=== PATIENT | female | born 1940 | race Caucasian/White ===

== ENCOUNTER 2016-05-25 18:00 | Emergency (ER) | payer MEDICARE, BC ==
[~2016-05-25] VITALS: Ht 157.5 cm; Wt 66.0 kg
[~2016-05-25 18:00] MED LIST: ADVA115A INH; ASPI1TAB69 PO; BENZ100 PO; BYST10TA2 PO; CALC500T42 PO; CALCTAB23 PO; FISHCAP4 PO; FURO1TAB62 PO; GING500C PO; LISI2.5T3 PO; NITR0.4S SL; OMEP20TA PO; PLAV75TA29 PO; POTA10TA8 PO; PRED50 PO; ROSU5 PO; SPIRCAP INH; ZITHTAB PO
[2016-05-25 18:03] VITALS: BP 116/54; PULSE 99; RESP 20; TEMP 100.3; O2SAT 99
--- NOTE | 2016-05-25 21:02 | PD ---
HPI Chief Complaint: Cold / Flu Symptoms Time Seen by Provider: 20:43 Travel History International Travel<30 days: No Contact w/Intl Traveler<30days: No Traveled to known affect area: No History of Present Illness HPI 75yo F with PMH of lung CA s/p radiation on home O2 3L NC, CAD s/p cardiac stent presents to the ED with c/o fever, cough, nasal congestion and throat pain for 3 days. Denies any chest pain, sob, n/v, abdominal pain, focal weakness or numbness. Pt takes flonase and her left nostril feels more congested. Sister had a cold before her symptoms started. PFSH Past Medical History Hx Anticoagulant Therapy: Yes (ASA 81 MG, PLAVIX) Arthritis: Yes Asthma: Yes Blood Disorders: No Anxiety: Yes Depression: Yes Heart Rhythm Problems: No Cancer: Yes (LUNG CA) Cardiac Catheterization: Yes Cardiovascular Problems: Yes (STENTS X 7) High Cholesterol: Yes Chemotherapy: Yes (2001) Chest Pain: Yes Congestive Heart Failure: No COPD: Yes Cerebrovascular Accident: No Coronary Artery Disease: Yes Diabetes: No Diminished Hearing: No Endocrine: No Gastrointestinal Disorders: Yes (GERD ) GERD: Yes Genitourinary: Yes (SPASTIC BLADDER) Hypertension: Yes Immune Disorder: No Implanted Vascular Access Dvce: Yes Musculoskeletal: Yes (ARTHRITIS) Neurologic: No Psychiatric: No Reproductive: No Respiratory: Yes (COPD, LUNG CA) Radiation Therapy: Yes Shingles: Yes Sleep Apnea: No Menopausal: Yes : 2 Para: 2 Tubal Ligation: Yes Past Surgical History Cardiac Surgery: Yes (PERICARDIAL WINDOW 2002, STENTS X 6, CARDIAC CATHERIZATION) Coronary Stent: Yes (x 6) Hysterectomy: No Joint Replacement: Yes (RIGHT TOTAL KNEE REPLACEMENT) Neurologic Surgery: No Other Surgery: Yes (2002 STENT LAD & PDA) Social History Alcohol Use: No Tobacco Use: No (QUIT 1984) Substance Use: No Allergies-Medications (Allergen,Severity, Reaction): Coded Allergies: Codeine (Verified Allergy, Severe, 05/25/16) Heparin (Verified Adverse Reaction, Mild, Bleeding, 05/25/16) Integrilin (Verified Adverse Reaction, Mild, Bleeding, 05/25/16) PT STATES SHE JUST DOES NOT WANT IT Reported Meds & Prescriptions Reported Meds & Active Scripts Active Reported Nitrostat SL (Nitroglycerin) 0.4 Mg Subl 0.4 Mg SL DIRECTED PRN ONE TABLET UNDER THE TONGUE NEEDED FOR CHEST PAIN, MAY REPEAT EVERY FIVE MINUTES FOR A TOTAL OF 3 DOSES OR CALL 911 IF NO RELIEF Plavix (Clopidogrel Bisulfate) 75 Mg Tab 75 Mg PO DAILY Spiriva Handihaler (Tiotropium Inh) 18 Mcg Cap 18 Mcg INH DAILY 1 capsule = 18 mcg Potassium Chloride CR (Potassium Chloride) 10 Meq Tab 10 Meq PO DAILY Lisinopril 2.5 Mg Tab 2.5 Mg PO DAILY Lasix (Furosemide) 20 Mg Tab 20 Mg PO DAILY Omeprazole 20 Mg Tab 20 Mg PO DAILY Maria Dolores (Maria Dolores (Zingiber Officinalis)) 500 Mg Cap 1 Cap PO DAILY Fish Oil + D3 (Fish Oil-Cholecalciferol) 1,200-1,000 Mg-Unit Cap 1 Cap PO DAILY Crestor (Rosuvastatin Calcium) 5 Mg Tab 5 Mg PO DAILY Aspirin 81 Mg Tabdr 81 Mg PO DAILY Bystolic (Nebivolol) 10 Mg Tab 10 Mg PO DAILY Advair Hfa 12 GM Inh (Fluticasone-Salmeterol 12 GM Inh) 115-21 Mcg/Act Aer 2 Puff INH BID Review of Systems Except as stated in HPI: all other systems reviewed are Neg Physical Exam Narrative GENERAL: 75yo F not in distress. SKIN: Warm and dry. HEAD: Atraumatic. Normocephalic. EYES: Pupils equal and round. No scleral icterus. No injection or drainage. ENT: +Increased turbinate in left. Throat: Clear. Uvula midline. NECK: Trachea midline. No JVD. CARDIOVASCULAR: Regular rate and rhythm. No murmur appreciated. RESPIRATORY: No accessory muscle use. Clear to auscultation. Breath sounds equal bilaterally. GASTROINTESTINAL: Abdomen soft, non-tender, nondistended. No rebound tenderness or guarding. MUSCULOSKELETAL: No obvious deformities. No clubbing. No cyanosis. No edema. NEUROLOGICAL: Awake and alert. No obvious cranial nerve deficits. Motor grossly within normal limits. Normal speech. PSYCHIATRIC: Appropriate mood and affect; insight and judgment normal. Data Data Last Documented VS Vital Signs Date Time Temp Pulse Resp B/P Pulse Ox O2 Delivery O2 Flow Rate FiO2 05/25/16 21:30 100.3 96 18 151/64 100 Nasal Cannula 3 Orders Chest, Single Ap (05/25/16 ) Complete Blood Count With Diff (05/25/16 20:56) Basic Metabolic Panel (Bmp) (05/25/16 20:56) Influenzae A/B Antigen (05/25/16 20:56) Lactic Acid Sepsis Protocol (05/25/16 20:56) Guaifen-Dm 200-20 Mg/10 Ml Liq (Robituss (05/25/16 21:15) Acetaminophen (Tylenol) (05/25/16 21:15) Electrocardiogram (05/25/16 ) Labs Laboratory Tests Test 05/25/16 22:00 White Blood Count 5.6 TH/MM3 Red Blood Count 3.82 MIL/MM3 Hemoglobin 10.5 GM/DL Hematocrit 31.5 % Mean Corpuscular Volume 82.6 FL Mean Corpuscular Hemoglobin 27.5 PG Mean Corpuscular Hemoglobin 33.3 % Concent Red Cell Distribution Width 15.6 % Platelet Count 172 TH/MM3 Mean Platelet Volume 7.4 FL Neutrophils (%) (Auto) 80.1 % Lymphocytes (%) (Auto) 9.7 % Monocytes (%) (Auto) 9.1 % Eosinophils (%) (Auto) 0.6 % Basophils (%) (Auto) 0.5 % Neutrophils # (Auto) 4.6 TH/MM3 Lymphocytes # (Auto) 0.5 TH/MM3 Monocytes # (Auto) 0.5 TH/MM3 Eosinophils # (Auto) 0.0 TH/MM3 Basophils # (Auto) 0.0 TH/MM3 CBC Comment DIFF FINAL Differential Comment Sodium Level 139 MEQ/L Potassium Level 4.2 MEQ/L Chloride Level 101 MEQ/L Carbon Dioxide Level 32.4 MEQ/L Anion Gap 6 MEQ/L Blood Urea Nitrogen 27 MG/DL Creatinine 1.30 MG/DL Estimat Glomerular Filtration 40 ML/MIN Rate Random Glucose 105 MG/DL Lactic Acid Level 0.7 mmol/L Calcium Level 8.8 MG/DL MDM Medical Decision Making Medical Screen Exam Complete: Yes Emergency Medical Condition: Yes Interpretation(s) Laboratory Tests Test 05/25/16 22:00 White Blood Count 5.6 TH/MM3 (4.0-11.0) Red Blood Count 3.82 MIL/MM3 (4.00-5.30) Hemoglobin 10.5 GM/DL (11.6-15.3) Hematocrit 31.5 % (35.0-46.0) Mean Corpuscular Volume 82.6 FL (80.0-100.0) Mean Corpuscular Hemoglobin 27.5 PG (27.0-34.0) Mean Corpuscular Hemoglobin 33.3 % Concent (32.0-36.0) Red Cell Distribution Width 15.6 % (11.6-17.2) Platelet Count 172 TH/MM3 (150-450) Mean Platelet Volume 7.4 FL (7.0-11.0) Neutrophils (%) (Auto) 80.1 % (16.0-70.0) Lymphocytes (%) (Auto) 9.7 % (9.0-44.0) Monocytes (%) (Auto) 9.1 % (0.0-8.0) Eosinophils (%) (Auto) 0.6 % (0.0-4.0) Basophils (%) (Auto) 0.5 % (0.0-2.0) Neutrophils # (Auto) 4.6 TH/MM3 (1.8-7.7) Lymphocytes # (Auto) 0.5 TH/MM3 (1.0-4.8) Monocytes # (Auto) 0.5 TH/MM3 (0-0.9) Eosinophils # (Auto) 0.0 TH/MM3 (0-0.4) Basophils # (Auto) 0.0 TH/MM3 (0-0.2) CBC Comment DIFF FINAL Differential Comment Sodium Level 139 MEQ/L (136-145) Potassium Level 4.2 MEQ/L (3.5-5.1) Chloride Level 101 MEQ/L (98-107) Carbon Dioxide Level 32.4 MEQ/L (21.0-32.0) Anion Gap 6 MEQ/L (5-15) Blood Urea Nitrogen 27 MG/DL (7-18) Creatinine 1.30 MG/DL (0.50-1.00) Estimat Glomerular Filtration 40 ML/MIN (>89) Rate Random Glucose 105 MG/DL (74-106) Lactic Acid Level 0.7 mmol/L (0.4-2.0) Calcium Level 8.8 MG/DL (8.5-10.1) Differential Diagnosis URI vs. influenza vs. pneumonia Narrative Course 75yo F here with nasal congestion, cough and throat pain. Impression is more URI but will r/o pneumonia. Pt has no chest pain or sob. Labs reviewed, no leukocytosis. H/H at baseline. BUN/creatinine is elevated but around baseline. Lactic acid normal. CXR showed stable appearance with chronic scarring and volume loss of right lung. No evidence of acute pneumonia. Pt reevaluated after robitussin and acetaminophen. States she feels better and wants to go home. Pt is saturating at 100% on 3 L NC which is what she has been on for years. Diagnosis Primary Impression: URI (upper respiratory infection) Qualified Code: J06.9 - Upper respiratory tract infection, unspecified type Patient Instructions: General Instructions Departure Forms: Tests/Procedures Additional Instructions: Please follow up with your PMD in 1-2 days. Return to the ED if symptoms worsen. Med/Other Pt SpecificInfo: Prescription(s) given Scripts Acetaminophen 325 Mg [id number] Mg PO Q4-6H PRN (PAIN SCALE 1 TO 4) #20 TAB Ref 0 Prov:Marivel Diaz DO 05/25/16 Disposition: 01 DISCHARGE HOME Condition: Stable Marivel Diaz DO May 25, 2016 21:02
[2016-05-25] MEDS ORDERED: ACETAMINOPHEN 500 MG CPLT PO ONE (21:15)
[2016-05-25] MEDS ORDERED: guaiFENesin/DEXTROMETHORPHAN 200 MG/20 MG/10 ML CUP PO ONE (21:15)
[2016-05-25 21:30] VITALS: BP 151/64; PULSE 96; RESP 18; TEMP 100.3; O2SAT 100
--- NOTE | 2016-05-25 21:40 | RADHPO ---
EXAM DATE/TIME: 05/25/2016 21:28 CORRECTION Corrected on: June 01, 2016; [facility] COMPARISON: CHEST SINGLE AP, August 05, 2015, 11:50. INDICATIONS : Fever and shortness of breath. MEDICAL HISTORY : Carcinoma, lung. SURGICAL HISTORY : cardiac stents ENCOUNTER: Initial ACUITY: 2 days PAIN SCORE: 5/10 LOCATION: Bilateral upper chest FINDINGS: A single portable erect view of the chest was obtained again demonstrates chronic pleural parenchymal change in the right upper thorax with stable volume loss. Milder scarring is present at the right lester ng base. The left costophrenic angle remains mildly blunted. The heart size is at the upper limits of normal with no new confluent infiltrates. CONCLUSION: 1. Stable appearance with chronic scarring and volume loss in the right lung. 2. There is no evidence of acute pneumonia on this single view study. Francisco Javier Meeks MD on May 25, 2016 at 21:37 Board Certified Radiologist. This report was verified electronically. Atif Kramer MD on June 01, 2016 at 9:52 Board Certified Radiologist. This report was verified electronically.
[2016-05-25 22:11] LABS: AUTOMATED NEUTROPHIL # 4.6 TH/MM3 (1.8-7.7); BASOPHIL % 0.5 % (0.0-2.0); EOSINOPHIL % 0.6 % (0.0-4.0); HEMATOCRIT 31.5 % (35.0-46.0); HEMO FLAGS DIFF FINAL; LYMPH % 9.7 % (9.0-44.0); LYMPHOCYTE # 0.5 TH/MM3 (1.0-4.8); MEAN CELL VOLUME 82.6 FL (80.0-100.0); MEAN CORPUSCULAR HEMOGLOBIN 27.5 PG (27.0-34.0); MEAN CORPUSCULAR HGB CONC 33.3 % (32.0-36.0); MONO % 9.1 % (0.0-8.0); NEUT % 80.1 % (16.0-70.0); PLATELET COUNT 172 TH/MM3 (150-450); RED BLOOD COUNT 3.82 MIL/MM3 (4.00-5.30); RED CELL DISTRIBUTION WIDTH 15.6 % (11.6-17.2); WHITE BLOOD COUNT 5.6 TH/MM3 (4.0-11.0)
[2016-05-25 22:21] LABS: POTASSIUM 4.2 MEQ/L (3.5-5.1)
[2016-05-25 22:24] LABS: BICARBONATE 32.4 MEQ/L (21.0-32.0)
[2016-05-25] MEDS ORDERED: ACET325T PO (22:58)
[2016-05-25 23:09] VITALS: BP 162/64
== END 2016-05-25 23:09 | disposition home or self-care (01) ==
LOC: PHED 18:00
DX: J06.9 Acute upper respiratory infection, unspecified (principal); I25.10 Atherosclerotic heart disease of native coronary artery without angina pectoris; J44.9 Chronic obstructive pulmonary disease, unspecified; I10 Essential (primary) hypertension; E78.00 Pure hypercholesterolemia, unspecified; Z92.3 Personal history of irradiation; Z85.118 Personal history of other malignant neoplasm of bronchus and lung; Z95.5 Presence of coronary angioplasty implant and graft; Z99.81 Dependence on supplemental oxygen; Z96.651 Presence of right artificial knee joint; R06.02 Shortness of breath
CPT/HCPCS: 71010; 80048; 83605; 85025; 87804